=== PATIENT | male | born 1985 | race Caucasian/White ===

== ENCOUNTER 2017-03-05 13:46 | Emergency (ER) | payer BC ==
[~2017-03-05] VITALS: Ht 180.3 cm; Wt 70.5 kg
[~2017-03-05 13:46] MED LIST: ALEVE220 M1 PO; CYCLOBENZAPRINE10 M1 PO; FLEXERIL 1010 MG/TAB PO; PERCOCET 325 MG1 TA2 PO; VOLTAREN 75 DR75 MG PO; ZANTAC150 M1 PO
[2017-03-05] MEDS ORDERED: TUMS REGULAR S500 MG PO (14:08)
[2017-03-05 16:28] VITALS: BP 118/73
== END 2017-03-05 16:13 | disposition home or self-care (01) ==
LOC: ED 13:46
DX: R11.2 Nausea with vomiting, unspecified (principal); R19.7 Diarrhea, unspecified; R10.13 Epigastric pain
CPT/HCPCS: J7030